=== PATIENT | male | born 1995 | race African-American/Black ===

== ENCOUNTER 2021-06-30 00:51 | Emergency (ER) | payer SELFPAY ==
[~2021-06-30] VITALS: Ht 182.9 cm; Wt 98.0 kg
[2021-06-30] MEDS ORDERED: KETOROLAC 60MG/2ML VIAL IM ONE (02:45)
[2021-06-30] MEDS ORDERED: T3 PO (03:06)
[2021-06-30] MEDS ORDERED: IBUP-2029 MT (03:06)
[2021-06-30] MEDS ORDERED: AMOX-424 MT (03:06)
[2021-06-30 03:20] VITALS: BP 134/93
== END 2021-06-30 03:23 | disposition home or self-care (01) ==
LOC: ER 01:41
DX: K04.7 Periapical abscess without sinus (principal)
CPT/HCPCS: 96372; 99283; J1885

== ENCOUNTER 2022-02-08 08:04 | Emergency (ER) | payer MEDICAID ==
[~2022-02-08] VITALS: Ht 182.9 cm; Wt 91.0 kg
[~2022-02-08 08:04] MED LIST: AMOX-424 MT; IBUP-2029 MT; T3 PO
[2022-02-08] MEDS ORDERED: HYDR-4001 MT (09:00)
[2022-02-08] MEDS ORDERED: IBUP-2029 MT (09:12)
[2022-02-08 10:20] VITALS: BP 129/88
== END 2022-02-08 10:25 | disposition home or self-care (01) ==
LOC: ER 08:04
DX: S92.301A Fracture of unspecified metatarsal bone(s), right foot, initial encounter for closed fracture (principal); W18.30XA Fall on same level, unspecified, initial encounter; Y93.89 Activity, other specified; Y92.89 Other specified places as the place of occurrence of the external cause; Y99.8 Other external cause status
CPT/HCPCS: 73610; 73630; 99284

== ENCOUNTER 2023-02-09 20:59 | Emergency (ER) | payer MEDICAID, OTHER ==
[~2023-02-09] VITALS: Ht 182.9 cm; Wt 104.2 kg
[2023-02-09 21:01] VITALS: BP 157/74
[2023-02-09] MEDS ORDERED: IBUPROFEN 600MG TABLET PO ONE (22:30)
[2023-02-09] MEDS ORDERED: CEPHALEXIN 250MG CAPSULE PO ONE (22:30)
[2023-02-09] MEDS ORDERED: CEPH500C2 MT (22:34)
[2023-02-09] MEDS ORDERED: IBUP-2029 MT (22:34)
== END 2023-02-09 22:51 | disposition home or self-care (01) ==
LOC: ER 20:59
DX: L02.31 Cutaneous abscess of buttock (principal)
CPT/HCPCS: 99283

== ENCOUNTER 2023-08-29 08:39 | Emergency (ER) | payer MEDICAID, OTHER ==
[~2023-08-29] VITALS: Ht 180.3 cm; Wt 109.0 kg
[~2023-08-29 08:39] MED LIST changes: +CEPH500C2 MT
[2023-08-29 08:43] VITALS: TEMP 98.2; O2SAT 98
[2023-08-29 09:15] VITALS: BP 134/86; PULSE 99; RESP 16
[2023-08-29] MEDS ORDERED: IBUPROFEN 600MG TABLET PO ONE (09:15)
== END 2023-08-29 09:59 | disposition home or self-care (01) ==
LOC: ER 08:39
DX: S63.502A Unspecified sprain of left wrist, initial encounter (principal); W19.XXXA Unspecified fall, initial encounter; Y93.89 Activity, other specified; Y92.89 Other specified places as the place of occurrence of the external cause; Y99.8 Other external cause status
CPT/HCPCS: 73080; 73110; 99284